=== PATIENT | female | born 1945 | race African-American/Black ===

== ENCOUNTER 2017-04-20 09:01 | Emergency (ER) | payer MEDICARE ==
[~2017-04-20] VITALS: Ht 157.5 cm; Wt 80.7 kg
[~2017-04-20 09:01] MED LIST: AMLODIPINE BESY10 MG ORAL; ASPIRIN81 MG ORAL; ATENOLOL50 MG ORAL; FISH OIL + D31 EACH PO; HYDROCHLOROTHIA25 MG ORAL
[2017-04-20 09:37] VITALS: BP 103/65
--- NOTE | 2017-04-20 10:04 | Diagnostic Imaging Report ---
Indication: COUGH Technique: Single portable AP view of the chest. Findings: Comparison: 09/11/2011 The bones and extra pulmonary soft tissues, cardiomediastinal silhouette, pulmonary vasculature and parenchyma, and pleural surfaces remain unremarkable. IMPRESSION: Negative portable AP chest, unchanged.
[2017-04-20 10:22] LABS: BASOPHILS % (AUTO) 1.2 % (0.0-2.0); EOSINOPHILS % (AUTO) 2.7 % (0.0-3.0); LYMPHOCYTES % (AUTO) 49.4 % (20.0-45.0); MEAN CORPUSCULAR HEMOGLOBIN 29.5 PG (27.0-31.0); MEAN CORPUSCULAR HGB CONC 33.6 G/DL (32.0-36.0); MEAN CORPUSCULAR VOLUME 88 FL (80-99); MEAN PLATELET VOLUME 5.6 FL (6.5-10.1); MONOCYTES % (AUTO) 15.5 % (1.0-10.0); NEUTROPHILS % (AUTO) 31.3 % (45.0-75.0); PLATELET COUNT 280 K/UL (150-450); RED BLOOD COUNT 4.61 M/UL (4.20-5.40); WHITE BLOOD COUNT 4.5 K/UL (4.8-10.8)
[2017-04-20 10:35] LABS: TROPONIN I < 0.30 ng/mL (<=0.30)
[2017-04-20 10:38] LABS: ALANINE AMINOTRANSFERASE 12 U/L (3-33); ALBUMIN/GLOBULIN RATIO 0.9 (1.0-2.7); ANION GAP 13 (5-15); ASPARTATE AMINO TRANSFERASE 25 U/L (5-40); CALCIUM 9.6 mg/dL (8.6-10.2); CARBON DIOXIDE 32 mEQ/L (20-30); CHLORIDE 95 mEQ/L (98-107); CREATININE 1.3 mg/dL (0.5-0.9); HEMOLYSIS 4; POTASSIUM 3.2 mEQ/L (3.4-4.9); SODIUM 140 mEQ/L (135-145); TOTAL PROTEIN 7.5 g/dL (6.6-8.7)
[2017-04-20 10:49] LABS: CKMB 1.5 ng/mL (< 3.8)
[2017-04-20] MEDS ORDERED: PROMETHAZI6.25 MG/1 ORAL (11:21)
[2017-04-20] MEDS ORDERED: LEVAQUIN750 MG ORAL (11:21)
[2017-04-20 11:29] VITALS: BP 103/65
--- NOTE | 2017-04-20 14:03 | Emergency Room Report ---
History of Present Illness General Chief Complaint: Upper Respiratory Illness Source: Patient Present Illness HPI 71-year-old female presents to ED complaining of cough and weakness times one week. Patient is cough with whitish phlegm. Patient is feeling weak and tired. Denies any fevers or chills. Denies chest pain or shortness of breath. Patient states that she has similar presentation a few weeks ago and was seen by PMD who prescribed her a Z-Michael. States that her symptoms improved mostly but persisted. No aggravating relieving factors. Denies any other associated symptoms Allergies: Coded Allergies: NO KNOWN ALLERGIES (Unverified Allergy, Unknown, 11/26/15) Patient History Past Medical History: HTN Past Surgical History: none Pertinent Family History: none Social History: Denies: alcohol use, drug use, smoking Now: No Immunizations: UTD Reviewed Nursing Documentation: PMH: Agreed, PSxH: Agreed Nursing Documentation-PMH Past Medical History: No History, Except For Hx Hypertension: Yes Hx Cancer: Yes - RIGHT BREAST BIOPSY-NEGATIVE Hx Neurological Problems: No Review of Systems All Other Systems: negative except mentioned in HPI Physical Exam Vital Signs Date Time Temp Pulse Resp B/P Pulse Ox O2 Delivery O2 Flow Rate FiO2 04/20/17 09:12 98.2 67 18 98/62 98 Room Air Sp02 EP Interpretation: reviewed, normal General Appearance: no apparent distress, alert, GCS 15, non-toxic Head: normocephalic, atraumatic Eyes: bilateral eye PERRL, bilateral eye normal inspection ENT: hearing grossly normal, normal pharynx, no angioedema, normal voice Neck: full range of motion, supple/symm/no masses Respiratory: chest non-tender, lungs clear, normal breath sounds, speaking full sentences Cardiovascular #1: regular rate, rhythm, no edema Cardiovascular #2: 2+ carotid (R), 2+ carotid (L), 2+ radial (R), 2+ radial (L) , 2+ dorsalis pedis (R), 2+ dorsalis pedis (L) Gastrointestinal: normal bowel sounds, non tender, soft, non-distended, no guarding, no rebound Rectal: deferred Genitourinary: normal inspection, no CVA tenderness Musculoskeletal: back normal, gait/station normal, normal range of motion, non- tender Neurologic: alert, oriented x3, responsive, motor strength/tone normal, sensory intact, speech normal Psychiatric: judgement/insight normal, memory normal, mood/affect normal, no suicidal/homicidal ideation Reflexes: 3+ bicep (R), 3+ bicep (L), 3+ tricep (R), 3+ tricep (L), 3+ knee (R) , 3+ knee (L) Skin: normal color, no rash, warm/dry, well hydrated Lymphatic: no adenopathy Medical Decision Making Diagnostic Impression: Primary Impression: Atypical pneumonia ER Course Hospital Course 71-year-old female presents to ED complaining of weakness, cough Differential diagnoses include: URI, bronchitis, asthma/COPD, pneumonia Clinical course Patient placed on stretcher. After initial history, physical exam reveals an elderly female in no acute distress. Bilateral TM unremarkable. No pharyngeal erythema. No tonsillar exudates. No lymphadenopathy. lungs clear. I ordered labs, IV fluids, chest x-ray. Labs reviewed-no leukocytosis noted, hemoglobin/hematocrit stable, K 3.2, Cr 1.3 Chest x-ray shows no infiltrate EKG - NSR, no acute changes interpreted by me On reassessment patient states she feels better. Patient prefers to be discharged. Per curb-65 criteria, patient does not require admission. Patient can be safely discharged to home with outpatient therapy. Patient agrees with plan. Diagnosis - atypical pneumonia Stable and discharged home with prescriptions for cough syrup, Levaquin. Instructed to followup with PMD. Return to ED if symptoms recur or worsen Labs Test 04/20/17 10:00 White Blood Count 4.5 K/UL (4.8-10.8) Red Blood Count 4.61 M/UL (4.20-5.40) Hemoglobin 13.6 G/DL (12.0-16.0) Hematocrit 40.5 % (37.0-47.0) Mean Corpuscular Volume 88 FL (80-99) Mean Corpuscular Hemoglobin 29.5 PG (27.0-31.0) Mean Corpuscular Hemoglobin Concent 33.6 G/DL (32.0-36.0) Red Cell Distribution Width 12.0 % (11.6-14.8) Platelet Count 280 K/UL (150-450) Mean Platelet Volume 5.6 FL (6.5-10.1) Neutrophils (%) (Auto) 31.3 % (45.0-75.0) Lymphocytes (%) (Auto) 49.4 % (20.0-45.0) Monocytes (%) (Auto) 15.5 % (1.0-10.0) Eosinophils (%) (Auto) 2.7 % (0.0-3.0) Basophils (%) (Auto) 1.2 % (0.0-2.0) Sodium Level 140 mEQ/L (135-145) Potassium Level 3.2 mEQ/L (3.4-4.9) Chloride Level 95 mEQ/L (98-107) Carbon Dioxide Level 32 mEQ/L (20-30) Anion Gap 13 (5-15) Blood Urea Nitrogen 13 mg/dL (7-23) Creatinine 1.3 mg/dL (0.5-0.9) Estimat Glomerular Filtration Rate mL/min (>60) Glucose Level 86 mg/dL (74-106) Lactic Acid Level 1.20 mmol/L (0.66-2.22) Calcium Level 9.6 mg/dL (8.6-10.2) Total Bilirubin 0.4 mg/dL (0.0-1.2) Aspartate Amino Transf (AST/SGOT) 25 U/L (5-40) Alanine Aminotransferase (ALT/SGPT) 12 U/L (3-33) Alkaline Phosphatase 55 U/L (35-104) Total Creatine Kinase 211 U/L (26-140) Creatine Kinase MB 1.5 ng/mL (< 3.8) Creatine Kinase MB Relative Index 0.7 Troponin I < 0.30 ng/mL (<=0.30) Pro-B-Type Natriuretic Peptide 33 pg/mL (0-125) Total Protein 7.5 g/dL (6.6-8.7) Albumin 3.7 g/dL (3.5-5.2) Globulin 3.8 g/dL Albumin/Globulin Ratio 0.9 (1.0-2.7) EKG Diagnostic Results Rate: normal Rhythm: NSR ST Segments: no acute changes ASA given to the pt in ED: No Rhythm Strip Diag. Results EP Interpretation: yes Rhythm: NSR, no PVC's, no ectopy Chest X-Ray Diagnostic Results Chest X-Ray Ordered: Yes # of Views/Limited/Complete: 1 View Interpretation: no consolidation, no effusion, no pneumothorax, no acute cardiopulmonary disease Indication: Other - cough Impression: No acute disease Date Electronically Signed: Apr 20, 2017 Time Electronically Signed: 14:00 Interpreting ER Physician: Narendra Newsome Last Vital Signs Date Time Temp Pulse Resp B/P Pulse Ox O2 Delivery O2 Flow Rate FiO2 04/20/17 11:29 61 16 103/65 95 Room Air 04/20/17 09:37 98.1 Status: improved Disposition: HOME, SELF-CARE Condition: Stable Scripts Promethazine Hcl (PROMETHAZINE HCL*) 6.25 Mg/5 Ml Syrup 5 ML ORAL Q6H, #120 ML 0 Refills Prov: NARENDRA NEWSOME M.D. 04/20/17 Levofloxacin* (LEVAQUIN*) 750 Mg Tablet 750 MG ORAL DAILY for 5 Days, TAB Prov: NARENDRA NEWSOME M.D. 04/20/17 Patient Instructions: Community-Acquired Pneumonia, Adult, [id number] NARENDRA NEWSOME M.D. Apr 20, 2017 14:02
--- NOTE | 2017-04-23 13:24 | Cardiology Report ---
APPROVED REPORT EKG Measurement Heart [id number] Sinus rhythm with 1st degree AV block Possible Anterior infarct, age undetermined Abnormal ECG
== END 2017-04-20 11:35 | disposition home or self-care (01) ==
LOC: EMR 09:58
DX: J18.9 Pneumonia, unspecified organism (principal); I10 Essential (primary) hypertension; Z85.3 Personal history of malignant neoplasm of breast
CPT/HCPCS: 36415; 71010; 80053; 82550; 82553; 83605; 83880; 84484; 85025; 87040; 93005; 96360; 99284; J7040; J8499

== ENCOUNTER 2017-07-21 08:18 | Emergency (ER) | payer MEDICARE ==
[~2017-07-21] VITALS: Ht 157.5 cm; Wt 81.6 kg
[~2017-07-21 08:18] MED LIST changes: +LEVAQUIN750 MG ORAL; +PROMETHAZI6.25 MG/1 ORAL
[2017-07-21 08:23] VITALS: BP 120/81
[2017-07-21] MEDS ORDERED: Morphine Sulfate 4mg/ml Inj IVP ONE (08:30)
--- NOTE | 2017-07-21 08:37 | Emergency Room Report ---
History of Present Illness General Chief Complaint: Pain Source: Patient Present Illness HPI 71 yo F with pmhx of htn p/w b/l neck and shoulder pain for one week . Patient states pain started when she lifted something. Pain is localized to right and left posterior neck and shoulders, worse on the right than the left, sharp, non radiating. Movement worsens pain. There are no alleviating factors. Patient states that she is unable to take aspirin as she is going to get elective eyelid surgery she was told to stay off any blood thinners. Denies weakness/numbness of her arms or hands Denies fever, chills, abdominal pain, n/v, dysuria/hematuria. No history of IVDA Allergies: Coded Allergies: NO KNOWN ALLERGIES (Unverified Allergy, Unknown, 11/26/15) Patient History Past Medical History: see triage record Past Surgical History: none Pertinent Family History: none Reviewed Nursing Documentation: PMH: Agreed, PSxH: Agreed Nursing Documentation-PMH Past Medical History: No History, Except For Hx Cardiac Problems: No - bronchitis Hx Hypertension: Yes Hx Cancer: Yes - RIGHT BREAST BIOPSY-NEGATIVE Hx Neurological Problems: No Review of Systems All Other Systems: negative except mentioned in HPI Physical Exam Vital Signs Date Time Temp Pulse Resp B/P (MAP) Pulse Ox O2 Delivery O2 Flow Rate FiO2 07/21/17 08:23 98.2 72 18 120/81 97 Room Air Sp02 EP Interpretation: reviewed, normal General Appearance: normal inspection, well appearing, no apparent distress, alert, GCS 15, non-toxic Head: normocephalic, atraumatic Eyes: bilateral eye normal inspection, bilateral eye PERRL, bilateral eye EOMI ENT: normal ENT inspection, normal pharynx, normal voice, moist mucus membranes Neck: supple, other - Paraspinal cervical tenderness right side worse than left , no midline tenderness, otherwise patient has full range of motion of the neck although with some pain, tender Respiratory: normal inspection, lungs clear, normal breath sounds, no respiratory distress, no retraction, no wheezing, speaking full sentences, chest symmetrical Cardiovascular #1: normal inspection, regular rate, rhythm, no edema, normal capillary refill Cardiovascular #2: 2+ radial (R), 2+ radial (L) Gastrointestinal: normal inspection, non tender, soft, non-distended, no guarding Musculoskeletal: normal inspection, back normal, normal range of motion, non- tender Neurologic: normal inspection, alert, oriented x3, responsive, motor strength/ tone normal, sensory intact, normal gait, speech normal Psychiatric: normal inspection, judgement/insight normal, memory normal Skin: normal inspection, normal color, no rash, warm/dry, well hydrated, normal turgor Medical Decision Making ER Course 71 yo f w neck pain one week DDX: likely musculoskeletal neck pain vs. muscular strain fracture is unlikely given patients age, no midline tenderness, no history of trauma, Therefore, at this time no imaging is indicated Serious diagnoses such as cord compression, epidural abscess is unlikely in this patient given the clinical scenario and abscess of neurological symptoms or findings. Patient appears nontoxic. Plan: Tylenol, robaxin Motrin would be preferred but patient states that she is unable to take any NSAIDs due to her elective surgery ER course: Patient has remained nontoxic appearing and ambulatory in the ED. Disposition: Patient will be discharged to home with prescription of Tylenol and robaxin. Patient cautioned of the effects of robaxin including possible impairment of physical or mental abilities. Patient was instructed to refrain from operating machinery or driving. Patient is also cautioned on the GI effects of motrin and to take sparingly. Patient verbalized understanding. Strict precautions discussed with patient on when to emergently return to the ED which includes severe/worsening neck pain, arm leg weakness/numbness, urinary retention/incontinence, fever or chills, which may indicate severe illness. Patient is to follow up with their PMD within 5 days. Patient agrees with plan. Please note that this Emergency Department Report was dictated using [id number] technology software, occasionally this can lead to erroneous entry secondary to interpretation by the dictation equipment. Last Vital Signs Date Time Temp Pulse Resp B/P (MAP) Pulse Ox O2 Delivery O2 Flow Rate FiO2 07/21/17 08:23 98.2 72 18 120/81 97 Room Air Disposition: HOME, SELF-CARE Condition: Improved Scripts Methocarbamol* (ROBAXIN*) 500 Mg Tablet 500 MG PO QID, #28 TAB 0 Refills Prov: Retino,Clairose M.D. 07/21/17 Acetaminophen* (ACETAMINOPHEN EXTRA STRENGTH*) 500 Mg Tablet 500 MG ORAL Q8H Y for Fever/Headache/Mild Pain, #30 TAB Prov: Retino,Clairose M.D. 07/21/17 Patient Instructions: Musculoskeletal Pain Additional Instructions: Please follow up with your primary care doctor within 5 days. Please take your prescription medication as directed. Please come back to the emergency room if you are having severe/worsening pain, numbness or weakness of the arms, high fever chills, headache, blurry vision Avtar Grant M.D. Jul 21, 2017 08:37
[2017-07-21] MEDS ORDERED: ACETAMINOPHEN500 M3 ORAL (08:42)
[2017-07-21] MEDS ORDERED: ROBAXIN500 MG PO (08:42)
[2017-07-21] MEDS ORDERED: Methocarbamol 750mg tab ORAL ONE (08:45)
[2017-07-21] MEDS ORDERED: Acetaminophen 500mg (ES) tab ORAL ONE (08:45)
[2017-07-21 08:50] VITALS: BP 120/81
== END 2017-07-21 08:50 | disposition home or self-care (01) ==
LOC: EMR 08:50
DX: M54.2 Cervicalgia (principal); M25.512 Pain in left shoulder; M25.511 Pain in right shoulder; I10 Essential (primary) hypertension; Z85.3 Personal history of malignant neoplasm of breast
CPT/HCPCS: 96374; 99284

== ENCOUNTER 2019-07-21 07:40 | Emergency (ER) | payer MEDICARE ==
[~2019-07-21] VITALS: Ht 157.5 cm; Wt 80.7 kg
[~2019-07-21 07:40] MED LIST changes: +ACETAMINOPHEN500 M3 ORAL; +ROBAXIN500 MG PO
[2019-07-21] MEDS ORDERED: Isovue-370 150ml vial INJ PRN ×2 (08:00)
--- NOTE | 2019-07-21 08:02 | Emergency Room Report ---
History of Present Illness General Chief Complaint: Dizziness Source: Patient Present Illness HPI 73-year-old female history of hypertension presents with acute dizziness that started this morning, unknown aggravating relieving factors she is not sure if it is positional, she has a small bouts of the room spinning, companied with some nausea, some abnormal balance, severity is moderate, lasting minutes, patient presents for evaluation denies any chest pain shortness of breath no abdominal pain Allergies: Coded Allergies: NO KNOWN ALLERGIES (Unverified Allergy, Unknown, 11/26/15) Patient History Past Medical History: see triage record Last Menstrual Period: n/a Reviewed Nursing Documentation: PMH: Agreed; PSxH: Agreed Nursing Documentation-PMH Past Medical History: No History, Except For Hx Cardiac Problems: No - bronchitis Hx Hypertension: Yes Hx Cancer: Yes - RIGHT BREAST BIOPSY-NEGATIVE Hx Neurological Problems: No Review of Systems All Other Systems: negative except mentioned in HPI Physical Exam Vital Signs Date Time Temp Pulse Resp B/P (MAP) Pulse Ox O2 Delivery O2 Flow Rate FiO2 07/21/19 07:42 98.2 60 18 145/85 (105) 96 Room Air Sp02 EP Interpretation: reviewed, normal General Appearance: well appearing, no apparent distress, alert Head: normocephalic, atraumatic Eyes: bilateral eye PERRL, bilateral eye EOMI ENT: uvula midline, moist mucus membranes Neck: supple, thyroid normal, supple/symm/no masses Respiratory: lungs clear, no respiratory distress, no retraction, no accessory muscle use Cardiovascular #1: normal peripheral pulses, regular rate, rhythm, no edema, no gallop, no murmur Gastrointestinal: non tender, soft, no guarding, no rebound Musculoskeletal: normal inspection Neurologic: alert, oriented x3, welcome center attendant III-XII nml as tested, motor strength/tone normal, normal gait, other - Finger-nose testing intact, Romberg negative, pronator drift negative, Tryon-Hallpike negative fatigable nystagmus to the right Psychiatric: mood/affect normal Skin: no rash, warm/dry Medical Decision Making Diagnostic Impression: Primary Impression: Dizziness Additional Impression: Vertigo ER Course 73 year old female presents with vertigo like symptoms, DDX includes vertigo, stroke, labyrinthitis Patient with no acute focal neurologic exams concerning for stroke, no posterior signs Labs negative CT negative patient feels better with meclizine Disposition home with return precautions Laboratory Tests Test 9/13/19 08:15 07/21/19 08:20 White Blood Count 4.5 K/UL (4.8-10.8) L Red Blood Count 4.57 M/UL (4.20-5.40) Hemoglobin 13.8 G/DL (12.0-16.0) Hematocrit 41.1 % (37.0-47.0) Mean Corpuscular Volume 90 FL (80-99) Mean Corpuscular Hemoglobin 30.2 PG (27.0-31.0) Mean Corpuscular Hemoglobin Concent 33.6 G/DL (32.0-36.0) Red Cell Distribution Width 12.1 % (11.6-14.8) Platelet Count 324 K/UL (150-450) Mean Platelet Volume 5.2 FL (6.5-10.1) L Neutrophils (%) (Auto) 37.4 % (45.0-75.0) L Lymphocytes (%) (Auto) 48.7 % (20.0-45.0) H Monocytes (%) (Auto) 9.8 % (1.0-10.0) Eosinophils (%) (Auto) 3.1 % (0.0-3.0) H Basophils (%) (Auto) 1.0 % (0.0-2.0) Prothrombin Time 10.8 SEC (9.30-11.50) Prothrombin Time INR 1.0 (0.9-1.1) PTT 24 SEC (23-33) Sodium Level 144 MMOL/L (136-145) Potassium Level 3.2 MMOL/L (3.5-5.1) L Chloride Level 106 MMOL/L (98-107) Carbon Dioxide Level 31 MMOL/L (21-32) Anion Gap 7 mmol/L (5-15) Blood Urea Nitrogen 20 mg/dL (7-18) H Creatinine 1.1 MG/DL (0.55-1.30) Estimate Glomerular Filtration Rate mL/min (>60) Glucose Level 100 MG/DL (74-106) Calcium Level 9.3 MG/DL (8.5-10.1) Total Bilirubin 0.5 MG/DL (0.2-1.0) Aspartate Amino Transferase (AST) 22 U/L (15-37) Alanine Aminotransferase (ALT) 19 U/L (12-78) Alkaline Phosphatase 57 U/L (46-116) Troponin I 0.000 ng/mL (0.000-0.056) Total Protein 7.9 G/DL (6.4-8.2) Albumin 3.4 G/DL (3.4-5.0) Globulin 4.5 g/dL Albumin/Globulin Ratio 0.8 (1.0-2.7) L Triglycerides Level 74 MG/DL (30-150) Cholesterol Level 194 MG/DL (< 200) LDL Cholesterol 126 mg/dL (<100) H HDL Cholesterol 53 MG/DL (40-60) Cholesterol/HDL Ratio 3.7 (3.3-4.4) Lipase 142 U/L (73-393) Urine Color Pale yellow Urine Appearance Clear Urine pH 7 (4.5-8.0) Urine Specific Coral 1.010 (1.005-1.035) Urine Protein Negative (NEGATIVE) Urine Glucose (UA) Negative (NEGATIVE) Urine Ketones Negative (NEGATIVE) Urine Blood 4+ (NEGATIVE) H Urine Nitrite Negative (NEGATIVE) Urine Bilirubin Negative (NEGATIVE) Urine Urobilinogen Normal MG/DL (0.0-1.0) Urine Leukocyte Esterase 2+ (NEGATIVE) H Urine RBC 5-10 /HPF (0 - 2) H Urine WBC 2-4 /HPF (0 - 2) Urine Squamous Epithelial Cells Few /LPF (NONE/OCC) Urine Bacteria Occasional /HPF (NONE) EKG Diagnostic Results EKG Time: 08:06 EP Interpretation: Sinus bradycardia, rate 55, QTc 390, no acute ST elevations , normal axis Rhythm Strip Diag. Results Rhythm Strip Time: 08:30 EP Interpretation: yes Rate: 56 Rhythm: other - Sinus bradycardia, no PVCs no ectopy Chest X-Ray Diagnostic Results Chest X-Ray Diagnostic Results : Chest X-Ray Ordered: Yes # of Views/Limited/Complete: 1 View Indication: Other - Dizziness EP Interpretation: Yes Interpretation: no consolidation, no effusion, no pneumothorax, no acute cardiopulmonary disease Impression: No acute disease Electronically Signed by: Trell Cheung MD CT/MRI/US Diagnostic Results CT/MRI/US Diagnostic Results : Impression Procedure: CTA Neck wo/w Contrast Indication: Dizziness and headache Technique: IV administration nonionic contrast. Arterial phase spiral acquisitions obtained through the neck Multiplanar and 3-D reconstructions were generated. Total dose length product 5005 mGycm. CTDIvol(s) 70, 16, 165, 53, 70 mGy. Radiation dose was minimized using automated exposure control Comparison: none Findings: The aortic arch is unremarkable. Branching anatomy of the great neck vessels is unremarkable. The right brachiocephalic artery demonstrates some kinking which may result in some narrowing. This is probably not significant, however. Normal caliber right common carotid artery. Normal caliber right internal carotid artery. No evidence of stenosis or dissection. No significant plaque formation demonstrated. The proximal right subclavian artery is normal in caliber. The vertebral arteries are codominant. The right vertebral artery is patent and overall normal in caliber, although there is diffuse mild narrowing distal to the PICA origin.. The left common carotid artery is tortuous but normal in caliber. The left internal carotid artery is patent, without evidence of significant stenosis or dissection. The left proximal subclavian artery is normal in caliber, although the origin is not optimally visualized due to streak artifact from the adjacent contrast filled left innominate vein. The left vertebral artery origin is likewise somewhat obscured. However, the left vertebral artery of overall appears to be normal in caliber without evidence of significant stenosis. The orbits are unremarkable. The parotid glands and submandibular glands are diffusely symmetrically heterogeneous and prominent bilaterally. No cervical mass or adenopathy demonstrated. The included upper mediastinum is unremarkable. The thyroid is unremarkable. The included lung apices demonstrate posterior groundglass opacity. The upper aerodigestive tract appears unremarkable. There is minimal left maxillary sinus mucosal disease demonstrated. There are degenerative changes of the cervical spine noted. Impression: No evidence of significant extracranial cerebrovascular insufficiency Prominent and diffusely heterogeneous bilateral parotid and submandibular glands. Significance uncertain, possibly just baseline for this patient. Recommend correlation with clinical findings. Bilateral apical pulmonary parenchymal groundglass opacities, may reflect dependent atelectatic changes or mild pulmonary edema. Correlate with clinical findings Incidental findings as noted, including degenerative cervical spondylosis, left maxillary sinus mucosal disease. The CT scanner at [facility] is accredited by the [employer] and the scans are performed using protocols designed to limit radiation exposure to as low as reasonably achievable to attain images of sufficient resolution adequate for diagnostic evaluation. Dictated By: Kale Ramirez MD Electronically Signed By: Kale Ramirez MD Signed Date/Time 07/21/19 1130 CC: Trell Cheung MD Last Vital Signs Date Time Temp Pulse Resp B/P (MAP) Pulse Ox O2 Delivery O2 Flow Rate FiO2 07/21/19 07:42 98.2 60 18 145/85 (105) 96 Room Air Disposition: HOME, SELF-CARE Condition: Stable Scripts Meclizine Hcl* (MECLIZINE*) 25 Mg Tablet 25 MG ORAL THREE TIMES A DAY PRN for for dizziness, #30 TAB Prov: Trell Cheung MD 07/21/19 Referrals: [facility]. [facility] Patient Instructions: Vertigo, Dizziness Additional Instructions: The patient was provided with discharge instructions, notified to follow-up with a primary care doctor and or specialist in the next 24-48 hours, and to return to the ED if they have worsening of their symptoms. Please note that this report is being documented using [employer] technology. This can lead to erroneous entry secondary to incorrect interpretation by the dictating instrument. Trell Cheung MD Jul 21, 2019 08:02
[2019-07-21 08:10] VITALS: BP 145/75
--- NOTE | 2019-07-21 08:10 | NUR ---
ED Nurse Note: pt ambulated to ED c/o new onset of dizziness. 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 pt denies any pain, N/V or SOB. she is AOx4.
[2019-07-21 08:47] LABS: EOSINOPHILS % (AUTO) 3.1 % (0.0-3.0); HEMATOCRIT 41.1 % (37.0-47.0); HEMOGLOBIN 13.8 G/DL (12.0-16.0); LYMPHOCYTES % (AUTO) 48.7 % (20.0-45.0); MEAN CORPUSCULAR VOLUME 90 FL (80-99); MONOCYTES % (AUTO) 9.8 % (1.0-10.0); NEUTROPHILS % (AUTO) 37.4 % (45.0-75.0); PLATELET COUNT 324 K/UL (150-450); RED BLOOD COUNT 4.57 M/UL (4.20-5.40); RED CELL DISTRIBUTION WIDTH 12.1 % (11.6-14.8); WHITE BLOOD COUNT 4.5 K/UL (4.8-10.8)
[2019-07-21 08:54] LABS: ANION GAP 7 mmol/L (5-15); BLOOD UREA NITROGEN 20 mg/dL (7-18); CALCIUM 9.3 MG/DL (8.5-10.1); CARBON DIOXIDE 31 MMOL/L (21-32); CHLORIDE 106 MMOL/L (98-107); CREATININE 1.1 MG/DL (0.55-1.30); POTASSIUM 3.2 MMOL/L (3.5-5.1); SODIUM 144 MMOL/L (136-145)
[2019-07-21 08:58] LABS: ALANINE AMINOTRANSFERASE 19 U/L (12-78); ALBUMIN 3.4 G/DL (3.4-5.0); ALBUMIN/GLOBULIN RATIO 0.8 (1.0-2.7); ALKALINE PHOSPHATASE 57 U/L (46-116); ASPARTATE AMINO TRANSFERASE 22 U/L (15-37); BILIRUBIN,TOTAL 0.5 MG/DL (0.2-1.0); CHOLESTEROL 194 MG/DL (< 200); HDL CHOLESTEROL 53 MG/DL (40-60); TRIGLYCERIDES 74 MG/DL (30-150)
--- NOTE | 2019-07-21 09:20 | NUR ---
pt able to ambulate to restroom with a steady gait, pt denies any dizziness with change in position or walking Addendum: 07/21/19 at 1116 by NADINE ARMANDO Nurse Note:
--- NOTE | 2019-07-21 09:27 | NUR ---
pt is stable and going for CTA of head and neck
[2019-07-21 09:40] LABS: APPEARANCE,URINE CLEAR; BILIRUBIN, URINE NEGATIVE (NEGATIVE); COLOR,URINE PALE YELLOW; GLUCOSE, URINE (UA) NEGATIVE (NEGATIVE); KETONES,URINE NEGATIVE (NEGATIVE); LEUKOCYTE ESTERASE ,URINE 2+ (NEGATIVE); NITRITE,URINE NEGATIVE (NEGATIVE); PH,URINE 7 (4.5-8.0); PROTEIN,URINE NEGATIVE (NEGATIVE); UROBILINOGEN,URINE NORMAL MG/DL (0.0-1.0)
[2019-07-21] MEDS ORDERED: Meclizine 25mg tab ORAL ONE (09:45)
--- NOTE | 2019-07-21 09:54 | NUR ---
pt states that dizziness episodes are "less intense" and less frequent than before
--- NOTE | 2019-07-21 10:26 | Diagnostic Imaging Report ---
Indication: Cough Technique: One view of the chest Comparison: 04/20/2017 Findings: Lungs and pleural spaces are clear. Heart size is normal. There is no significant interim change Impression: No acute process
[2019-07-21 10:45] VITALS: BP 124/81
--- NOTE | 2019-07-21 10:45 | NUR ---
ED Nurse Note: pt stable and able to ambutlate to restroom with steady gait. HR: 61 SpO2: 94% RR: 15 BP: 124/81
--- NOTE | 2019-07-21 11:35 | Diagnostic Imaging Report ---
Indication: Dizziness and headache Technique: IV administration nonionic contrast. Arterial phase spiral acquisitions obtained through the neck Multiplanar and 3-D reconstructions were generated. Total dose length product 5005 mGycm. CTDIvol(s) 70, 16, 165, 53, 70 mGy. Radiation dose was minimized using automated exposure control Comparison: none Findings: The aortic arch is unremarkable. Branching anatomy of the great neck vessels is unremarkable. The right brachiocephalic artery demonstrates some kinking which may result in some narrowing. This is probably not significant, however. Normal caliber right common carotid artery. Normal caliber right internal carotid artery. No evidence of stenosis or dissection. No significant plaque formation demonstrated. The proximal right subclavian artery is normal in caliber. The vertebral arteries are codominant. The right vertebral artery is patent and overall normal in caliber, although there is diffuse mild narrowing distal to the PICA origin.. The left common carotid artery is tortuous but normal in caliber. The left internal carotid artery is patent, without evidence of significant stenosis or dissection. The left proximal subclavian artery is normal in caliber, although the origin is not optimally visualized due to streak artifact from the adjacent contrast filled left innominate vein. The left vertebral artery origin is likewise somewhat obscured. However, the left vertebral artery of overall appears to be normal in caliber without evidence of significant stenosis. The orbits are unremarkable. The parotid glands and submandibular glands are diffusely symmetrically heterogeneous and prominent bilaterally. No cervical mass or adenopathy demonstrated. The included upper mediastinum is unremarkable. The thyroid is unremarkable. The included lung apices demonstrate posterior groundglass opacity. The upper aerodigestive tract appears unremarkable. There is minimal left maxillary sinus mucosal disease demonstrated. There are degenerative changes of the cervical spine noted. Impression: No evidence of significant extracranial cerebrovascular insufficiency Prominent and diffusely heterogeneous bilateral parotid and submandibular glands. Significance uncertain, possibly just baseline for this patient. Recommend correlation with clinical findings. Bilateral apical pulmonary parenchymal groundglass opacities, may reflect dependent atelectatic changes or mild pulmonary edema. Correlate with clinical findings Incidental findings as noted, including degenerative cervical spondylosis, left maxillary sinus mucosal disease. The CT scanner at [facility] is accredited by the [employer] and the scans are performed using protocols designed to limit radiation exposure to as low as reasonably achievable to attain images of sufficient resolution adequate for diagnostic evaluation.
[2019-07-21] MEDS ORDERED: MECLIZINE HCL25 MG ORAL (11:44)
--- NOTE | 2019-07-21 11:57 | Diagnostic Imaging Report ---
Indication: Dizziness, headache, nausea Technique: Precontrast spiral acquisitions obtained through the brain. IV administration nonionic contrast. Arterial and delayed phase spiral acquisitions obtained through the brain Multiplanar and 3-D reconstructions were generated. Total dose length product 5005.73 mGycm. CTDIvol(s) 70.38,53.02,70.38 mGy. Radiation dose was minimized using automated exposure control Comparison: none Findings: Precontrast images demonstrate normal size ventricles and extra axial CSF spaces. No acute intracranial hemorrhage or edema, mass effect, nor midline shift. Dowd-white differentiation is normal. The calvarium is intact. Sinuses and mastoids are clear. The orbits are unremarkable Angiographic images demonstrate narrowing of the right vertebral artery diffusely distal to the PICA origin. Suspected this is developmental in nature rather than acquired. The left intracranial vertebral artery is normal in caliber. Patent and normal caliber basilar artery. The right AICA is demonstrated. The left PICA is not visualized. Patent bilateral superior cerebellar neural arteries, compared on the right. Patent and nonstenotic bilateral P1 segments. Neither posterior communicating artery is visualized. The bilateral P2 segments and proximal branches are patent without significant stenosis. The anterior circulation demonstrates patent and nonstenotic bilateral distal internal carotid arteries. Both ophthalmic arteries are visualized and patent. Patent nonstenotic bilateral M1 segments and proximal branches. Patent nonstenotic bilateral A1 segments. The anterior communicating artery is patent No evidence of aneurysm or vascular malformation. The veins and venous sinuses are patent, normal. Delayed phase images demonstrate no evidence of unusual contrast enhancement. Impression: No evidence of significant intracranial cerebrovascular insufficiency Variant nondal[place] of Hernandez anatomy, as described Negative for acute intracranial bleed, mass effect, or contrast enhancing lesion. The CT scanner at [facility] is accredited by the [employer] and the scans are performed using protocols designed to limit radiation exposure to as low as reasonably achievable to attain images of sufficient resolution adequate for diagnostic evaluation.
[2019-07-21 12:12] VITALS: BP 103/86
[2019-07-21 12:13] VITALS: BP 103/86
--- NOTE | 2019-07-21 12:13 | NUR ---
ER DISCHARGE NOTE: Patient is cleared to be discharged per ERMD, pt is aox4, on room air, with stable vital signs. pt was given dc and prescription instructions, pt was able to verbalize understanding, pt id band and iv site removed without complications. pt is able to ambulate with steady gait. pt took all belongings.
--- NOTE | 2019-07-22 13:17 | Cardiology Report ---
APPROVED REPORT EKG Measurement Heart [id number] Sinus bradycardia with 1st degree AV block Otherwise normal ECG
== END 2019-07-21 12:14 | disposition home or self-care (01) ==
LOC: EMR 08:39
DX: R42 Dizziness and giddiness (principal); I10 Essential (primary) hypertension; R51 Headache; J32.0 Chronic maxillary sinusitis; M47.812 Spondylosis without myelopathy or radiculopathy, cervical region
CPT/HCPCS: 36415; 70496; 70498; 71045; 80053; 80061; 81003; 82962; 83690; 84484; 85025; 85610; 85730; 93005; 99284; Q9967